=== PATIENT | male | born 1980 | race Caucasian/White ===

== ENCOUNTER 2020-06-13 11:02 | Day surgery (SDC) | payer OTHER ==
[~2020-06-13] VITALS: Ht 195.6 cm; Wt 119.8 kg
[~2020-06-13 11:02] MED LIST: ALBU90I INH; ASPI325 PO; CEPH500 PO; CITA20 PO; CLON1 PO; DULO30 PO; HYDACE5 PO; IBUP600 PO; LEVSOD75 PO; LITH300C PO; LORA.5 PO; MODA200; NAPR500 PO; OXYC10TA19 PO; PENVK500 PO; QUET25 PO; RISP.25; SAPHRIS10 MG; ZIPR20; ZYRTEC10 M2 PO; Zofran Odt8 MG PO
== END 2020-06-13 12:45 | disposition home or self-care (01) ==
LOC: ORSCSDS 11:02
PROVIDERS: Internal Medicine Gastroenterology
PROC: 0DBH8ZX Excision of Cecum, Via Natural or Artificial Opening Endoscopic, Diagnostic (ICD-10-PCS; principal; 2020-06-13 12:45)
PROC: 0DBK8ZX Excision of Ascending Colon, Via Natural or Artificial Opening Endoscopic, Diagnostic (ICD-10-PCS; principal; 2020-06-13 12:45)
DX: R19.7 Diarrhea, unspecified (principal); D12.0 Benign neoplasm of cecum; D12.2 Benign neoplasm of ascending colon; F20.9 Schizophrenia, unspecified; J45.909 Unspecified asthma, uncomplicated; E03.9 Hypothyroidism, unspecified; F41.8 Other specified anxiety disorders; Z87.891 Personal history of nicotine dependence; E66.9 Obesity, unspecified; Z68.34 Body mass index [BMI] 34.0-34.9, adult; Z79.899 Other long term (current) drug therapy
CPT/HCPCS: 88305; J2250; J2704; J7120

== ENCOUNTER 2022-02-19 10:45 | Day surgery (SDC) | payer OTHER ==
[~2022-02-19] VITALS: Ht 195.6 cm; Wt 132.9 kg
[2022-02-19] MEDS ORDERED: GABA100 (11:06)
[2022-02-19] MEDS ORDERED: ALBU90OI (11:06)
== END 2022-02-19 13:25 | disposition home or self-care (01) ==
LOC: ORSCSDS 10:45
PROVIDERS: Student in an Organized Health Care Education/Training Program
PROC: 0DB58ZX Excision of Esophagus, Via Natural or Artificial Opening Endoscopic, Diagnostic (ICD-10-PCS; principal; 2022-02-19 12:00)
PROC: 0DB48ZX Excision of Esophagogastric Junction, Via Natural or Artificial Opening Endoscopic, Diagnostic (ICD-10-PCS; principal; 2022-02-19 12:00)
DX: R13.10 Dysphagia, unspecified (principal); K20.90 Esophagitis, unspecified without bleeding; K44.9 Diaphragmatic hernia without obstruction or gangrene; J45.909 Unspecified asthma, uncomplicated; Z87.891 Personal history of nicotine dependence; Z79.899 Other long term (current) drug therapy
CPT/HCPCS: 88305; 88312; J2250; J2704; J7120